=== PATIENT | female | born 1970 | race Caucasian/White ===

== ENCOUNTER 2024-05-30 10:19 | Observation (INO) | payer OTHER ==
[~2024-05-30] VITALS: Ht 165.1 cm; Wt 72.5 kg
[2024-05-30] VITALS (17 sets, daily range): BP systolic 99–121; BP diastolic 66–86
[2024-05-30 10:45] LABS: BASO% 0.6 % (0-3); EOS% 2.8 % (0-8); HEMOGLOBIN 11.7 g/dl (12.0-16.0); IMMATURE GRANULOCYTES 0.6 % (0.0-5.0); LYMPH% 34.3 % (15-41); MEAN CORPUSCULAR HGB 30.2 pG CALC (26.0-32.0); MEAN CORPUSCULAR HGB CONC 32.5 g/dL CAL (32.0-36.0); MONO% 9.5 % (2-13); NEUT# 3.5 thou/uL (2.00-7.15); NEUT% 52.2 % (42-76); RED BLOOD COUNT 3.87 mill/uL (4.20-5.60); RED CELL DISTRI WIDTH 14.2 % (11.5-15.5)
[2024-05-30 11:28] LABS: ALBUMIN 3.8 g/dL (3.2-5.0); ALKALINE PHOSPHATASE 80 u/l (38-126); ANION GAP 11 (6-22 (CALC)); BILIRUBIN, TOTAL 0.8 mg/dL (0.02-1.3); BUN 11 mg/dL (7-17); BUN/CREATININE RATIO 13 (12-20 (CALC)); CALCULATED LDLCHOLESTEROL 101 mg/dL (62-129 (CALC)); CARBON DIOXIDE 22 mmol/l (22-30); CHLORIDE 104 mmol/l (95-108); CHOLESTEROL HDL RATIO 3.2 (<4.4 (CALC)); CREATININE 0.9 mg/dL (0.5-1.0); ESTIMATED GFR 76 ML/MIN (>=90 (CALC)); HDL CHOLESTEROL 61 mg/dL (39.0-59.0); POTASSIUM 4.3 mmol/l (3.5-5.1); SGOT/AST 32 u/l (14-36); SODIUM 133 mmol/l (137-146); TOTAL CHOLESTEROL 196 mg/dl (0-199); TOTAL PROTEIN 6.5 g/dL (6.3-8.2); TOTAL TRIGLYCERIDES 170 mg/dl (0-149); VLDL CHOLESTROL 34 mg/dl (2-49 (CALC))
[2024-05-30 11:33] LABS: PROTHROMBIN TIME 10.3 SECONDS (9.0-12.5)
[2024-05-30] MEDS ORDERED: ASPIRIN 81 MG/TAB PO ONE (12:40)
[2024-05-30 14:18] LABS: URINE BILIRUBIN - DIPSTICK Negative (NEGATIVE); URINE BLOOD DIPSTICK Negative (NEGATIVE); URINE GLUCOSE - DIPSTICK Negative (NEGATIVE); URINE KETONE Trace mg/dL (NEGATIVE); URINE LEUK ESTERASE Negative (NEGATIVE); URINE NITRITE - DIPSTICK Negative (Negative); URINE PH 7.5 (4.5-8.0); URINE PROTEIN - DIPSTICK Negative (NEG-TRACE); URINE SPECIFIC GRAVITY 1.015; URINE UROBILINOGEN - DIPSTICK 0.2 E.U./dL (0.2)
[2024-05-30 14:22] LABS: URINE COLOR Yellow
[2024-05-30] MEDS ORDERED: MAGNESIUM HYDROXIDE 30 ML UDC PO PRN (15:15)
[2024-05-30] MEDS ORDERED: ACETAMINOPHEN 325 MG/TAB PO PRN (15:15)
[2024-05-30] MEDS ORDERED: WELLBUTRIN XL300 MG PO (16:44)
[2024-05-30] MEDS ORDERED: LEVOTHYROXIN25 MC1 PO (16:44)
[2024-05-30] MEDS ORDERED: ENOXAPARIN SODIUM 40 MG/0.4 ML SYR SC SCH (21:00)
[2024-05-30] MEDS ORDERED: ATORVASTATIN CALCIUM 40 MG/TAB PO SCH (21:00)
[2024-05-31 04:50] VITALS: BP 105/70
[2024-05-31 05:42] LABS: BASO% 0.7 % (0-3); EOS% 3.2 % (0-8); IMMATURE GRANULOCYTES 0.7 % (0.0-5.0); LYMPH% 29.5 % (15-41); MEAN CELL VOLUME 92.2 fL CALC (80.0-100.0); MEAN CORPUSCULAR HGB 30.4 pG CALC (26.0-32.0); MONO% 9.7 % (2-13); NEUT# 3.39 thou/uL (2.00-7.15); NEUT% 56.2 % (42-76); RED BLOOD COUNT 4.6 mill/uL (4.20-5.60); RED CELL DISTRI WIDTH 13.6 % (11.5-15.5)
[2024-05-31 05:43] LABS: HEMATOCRIT 42.4 % (37.0-47.0)
[2024-05-31 05:50] LABS: ALBUMIN 3.9 g/dL (3.2-5.0); BILIRUBIN, TOTAL 0.8 mg/dL (0.02-1.3); CREATININE 0.8 mg/dL (0.5-1.0); MAGNESIUM 2.2 mg/dL (1.6-2.3); POTASSIUM 4.3 mmol/l (3.5-5.1); TOTAL PROTEIN 6.6 g/dL (6.3-8.2)
[2024-05-31] MEDS ORDERED: LEVOTHYROXINE SODIUM 25 MCG/TAB PO SCH (06:00)
[2024-05-31 06:56] VITALS: BP 106/68
[2024-05-31] MEDS ORDERED: buPROPion HCL 150 MG TAB SR PO SCH (09:00)
[2024-05-31] MEDS ORDERED: ASPIRIN EC 81 MG/TAB PO SCH (09:00)
[2024-05-31 11:21] VITALS: BP 102/64
[2024-05-31] MEDS ORDERED: ATORVASTATIN CA40 MG PO (14:10)
[2024-05-31] MEDS ORDERED: ADLT ASA LOW81 MG PO (14:10)
== END 2024-05-31 16:53 | disposition home or self-care (01) | DRG 92 ==
LOC: ED 10:19 → ED-I 14:50 → ED 15:03 → MS2 15:04
PROVIDERS: Emergency Medicine; Nurse Practitioner Family; ADMIT Internal Medicine; ATTEND Internal Medicine
DX: R20.2 Paresthesia of skin (principal); R47.01 Aphasia; E03.9 Hypothyroidism, unspecified; F41.9 Anxiety disorder, unspecified; F32.A Depression, unspecified
CPT/HCPCS: G0378; J1650; Q9967